=== PATIENT | male | born 1945 | race Caucasian/White ===

== ENCOUNTER → 2017-08-03 | Outpatient (CLI) | payer OTHER ==
[~2017-08-03] MED LIST: ALEVE220 MG PO; ANAPROX; BACTRIM DS TAB1 EACH PO; CEFUROXIME500 MG PO; CHOLESTEROL MED; COQ-10100 MG PO; COZAAR 50 MG TA50 M2 PO; FISH OIL 1,001000 M2 PO; FLAGYL500 MG PO; GINKGO60 MG PO; HEART MED; KEFLEX500 MG PO; MEDROLDOSEPACK PO; MINOCIN100 MG PO; NAPROSYN500 MG PO; SENTRY MULTIVI1 EACH PO; ZOCOR20 MG PO
== END ==
LOC: M.ULTRA 14:19
DX: N28.1 Cyst of kidney, acquired (principal); N28.9 Disorder of kidney and ureter, unspecified; I10 Essential (primary) hypertension; E78.5 Hyperlipidemia, unspecified; I73.9 Peripheral vascular disease, unspecified; R60.0 Localized edema

== ENCOUNTER → 2017-12-27 | Outpatient (CLI) | payer OTHER ==
--- NOTE | 2018-01-02 19:14 | SLEEP ---
[address] [address] SLEEP STUDY REPORT Name: JAMES LAU Room: [facility]#: [id number] Admission: 12/27/17 Attend Phys: Mick Quintana Discharge: Date of : 45 Report #: [id number] THIS REPORT FOR: //name// CC: Rosalie Liu This study has been reviewed in its entirety by a board certified sleep specialist DATE OF SERVICE: 12/27/2017 ATTENDING PHYSICIAN: Dr. Rosalie Liu. The patient is 72 years old who weighs 235 pounds and is 70 inches tall with a BMI of 33.7. The patient has a history of sleep apnea. Old records also suggest that the patient also has central sleep apnea. The patient was referred back for a split night study. During the night of study, the patient spent 452 minutes in bed and slept for 389 minutes with an excellent sleep efficiency of 86%. Sleep latency was 0.9 minutes with a REM latency of 43.9 minutes, which was short. Overall, sleep architecture showed normal stage 1 and stage II sleep, increased slow wave, which was 25% of the total sleep time and normal REM sleep, which was 26% of total sleep time. During the initial diagnostic portion of the study, the patient spent 151 minutes and slept for 141 minutes. During that time, the patient had 3 obstructive apneas, no mixed or central apneas. There were 29 hypopneas. The patient's apnea-hypopnea index was 13.6 per hour with a REM index of 51.7 per hour and a supine index of 13.6 per hour. EKG monitoring revealed average heart rate of 64 beats per minute with a maximum of 82 beats per minute. No sustained arrhythmias were observed. There was normal sinus rhythm. PLMS were seen at an index of 68 per hour and 7 per hour caused EEG arousals. Nocturnal oximetry study revealed an average oxygen saturation of 91% with a lowest of 56%. 19 minutes were spent at oxygen saturation less than 88%. The patient was started on BiPAP at a pressure of 8/4 after meeting the split night criteria. At a final pressure of 15/9, the patient slept for 60.4 minutes. The patient had REM sleep as well as supine sleep. The patient's AHI was reduced to 1 per hour and oxygen saturation remained above 89%. IMPRESSION: 1. Mild sleep apnea-hypopnea syndrome with worsening [place] [address] SLEEP STUDY REPORT Name: JAMES LAU Room: [facility]#: [id number] Admission: 12/27/17 Attend Phys: Mick Quintana Discharge: Date of : 45 Report #: [id number] AHI of 13.6 per hour with a REM AHI of 51.7 per hour. 2. Nocturnal hypoxia secondary to obstructive sleep apnea, but resolved with CPAP. 3. Severe PLMS at an index of 68 per hour and 7 per hour caused EEG arousals. RECOMMENDATIONS: 1. BiPAP at 15/, completely eliminated the patient's sleep apnea and should be used on a nightly basis. 2. Follow up in 4-6 weeks to assess compliance with BiPAP and to document clinical improvement. 3. Weight loss is advised. 4. Avoid CHIEF VENDOR QUALITY depressants. 5. Cautioned regarding driving until symptoms of sleep apnea resolve with the use of BiPAP. 6. The patient should also be further evaluated for symptoms of restless legs during the day. <ELECTRONICALLY SIGNED> By: David Timmons MD 01/02/18 1914 1740 [id number] Timmons MD /nt
== END ==
LOC: M.SLEEPLAB 20:09
DX: G47.30 Sleep apnea, unspecified (principal)

== ENCOUNTER 2018-08-21 12:47 | Inpatient (IN) | payer OTHER ==
[2018-08-10 09:34] LABS: ABSOLUTE EOSINOPHILS 0.1 thou/uL (0.0-0.7); ABSOLUTE LYMPHOCYTES 1.3 thou/uL (0.8-5.3); ABSOLUTE MONOCYTES 0.5 thou/uL (0.0-1.2); ABSOLUTE NEUTROPHILS 2.8 thou/uL (1.6-8.1); BASOPHILS 0.4 %; EOSINOPHILS 2.7 %; HEMATOCRIT 39.5 % (42.0-52.0); HEMOGLOBIN 13.1 gm/dL (14.0-18.0); LYMPHOCYTES 27.5 %; MCH 33.5 pg (26.0-34.0); MCHC 33.2 g/dL (28.0-37.0); MCV 100.9 fL (80.0-100.0); MONOCYTES 10.7 %; NUCLEATED RBCS 0 /100WBC; PLATELET COUNT* 163 thou/uL (150-400); POLYS 58.7 %; RBC 3.91 mil/uL (4.50-6.00); RDW-CV 13.6 % (10.5-14.5); WBC 4.8 thou/uL (4.0-11.0)
[2018-08-10 09:39] LABS: APTT 27.1 Seconds (25.0-31.3)
[2018-08-10 09:45] LABS: ALBUMIN 3.8 g/dL (3.4-5.0); CALCIUM 8.7 mg/dL (8.5-10.1); CREATININE 1.3 mg/dL (0.6-1.3); POTASSIUM 4.3 mmol/L (3.5-5.1); TOTAL BILIRUBIN 0.5 mg/dL (<0.1-1.0); TOTAL PROTEIN 6.7 g/dL (6.4-8.2)
[2018-08-10 10:41] LABS: ESR (SEDRATE) 7 mm/hr (0-20)
[2018-08-10 23:06] LABS: GLYCOHEMOGLOBIN (HGB A1C) 5.6 % (4.8-5.6)
--- NOTE | 2018-08-11 11:39 | EKG ---
[place] [address] ELECTROCARDIOGRAM REPORT Name: JAMES LAU Room: [facility]#: [id number] Admission: Attend Phys: Xavier Harris DO Discharge: Date of : 45 Report #: [id number] THIS REPORT FOR: //name// [facility] Test Date: 2018-08-10 Test Time: 09:31:47 Pat Name: JAMES LAU Department: Room: Gender: M Tower Operator: : 1945 Requested By: Xavier Harris Order Number: [id number] Reading MD: Wilfredo Gallegos Measurements Intervals [place] Rate: 66 P: 58 AR: 172 QRS: 10 QRSD: 72 T: 30 QT: 384 QTc: 403 Interpretive Statements Sinus rhythm Atrial premature complex Abnormal R-wave progression, early transition Compared to ECG 01/09/2016 11:32:42 Atrial premature complex(es) now present Electronically Signed On 08-11-2018 11:39:19 CDT by Wilfredo Gallegos [email or web address] <ELECTRONICALLY SIGNED> By: Wilfredo Gallegos MD, [facility] 08/11/18 1139 0931 0 Wilfredo Gallegos MD, FACC /EPI
[~2018-08-21] VITALS: Ht 175.3 cm; Wt 100.7 kg
[2018-08-21 14:38] VITALS: BP 114/77
[2018-08-21 17:30] VITALS: BP 128/72
[2018-08-21 20:00] VITALS: BP 121/68
[2018-08-22] VITALS: BP 116/62
[2018-08-22 04:21] LABS: HEMATOCRIT 36.4 % (42.0-52.0)
[2018-08-22 07:20] VITALS: BP 111/62
[2018-08-22] MEDS ORDERED: ELIQUIS5 MG PO (08:18)
[2018-08-22] MEDS ORDERED: OXYCODONE HCL 55 MG PO (08:18)
[2018-08-22] MEDS ORDERED: CELEBREX 200 M200 M1 PO (08:18)
[2018-08-22] MEDS ORDERED: COLACE100 MG PO (08:18)
[2018-08-22 10:59] VITALS: BP 111/62
[2018-08-22 11:37] VITALS: BP 118/66
[2018-08-22 16:55] VITALS: BP 108/61
[2018-08-22 20:00] VITALS: BP 129/66
[2018-08-23] VITALS: BP 123/68
[2018-08-23 00:05] VITALS: BP 125/76
[2018-08-23 04:00] VITALS: BP 135/73
[2018-08-23 04:46] LABS: HEMATOCRIT 35.3 % (42.0-52.0); HEMOGLOBIN 11.9 gm/dL (14.0-18.0)
[2018-08-23 07:40] VITALS: BP 106/62
--- NOTE | 2018-08-23 11:57 | OP ---
[address] [address] OPERATIVE REPORT Name: JAMES LAU Room: [address] M.R.#: [id number] Admission: 08/21/18 Attend Phys: Mick Thompson Discharge: Date of : 45 Report #: [id number] THIS REPORT FOR: //name// CC: Rosalie Lundberg DATE OF SERVICE: 08/21/2018 PREOPERATIVE DIAGNOSIS: Left knee advanced degenerative joint disease. POSTOPERATIVE DIAGNOSIS: Left knee advanced degenerative joint disease. PROCEDURE PERFORMED: Left total knee arthroplasty. SURGEON: Xavier Harris DO TRAVEL OT: Radha Johnson PA-C, gift shop assistant required for patient positioning, exposure, retraction as well as final implantation of the implants. SECOND ADULT LITERACY TEACHER: Gurpreet Mukherjee DO OPERATION PERFORMED: Left total knee arthroplasty. ANESTHESIA: General, local and regional nerve block. ESTIMATED BLOOD LOSS: 175 mL. SPECIMENS: None. COMPLICATIONS: None. IMPLANTS: Biomet Vanguard knee system. 1. 67.5 CR femur. 2. 79 tibia. 3. 10 mm poly. 4. 34 patella. INDICATIONS FOR PROCEDURE: The patient is a pleasant 73-year-old male with known DJD of the left knee who has failed conservative measures. He has x-rays demonstrating joint space narrowing, sclerosis, osteophytic changes and has attempted NSAIDs as tolerated, intraarticular injections as tolerated, activity modifications, home exercise. His symptoms continue to affect his ADLs and he is becoming more sedentary. Risks, benefits, complications and alternatives, indication of surgery discussed with the patient, include but not limited to risk of infection, need for repeat surgery, risks of nerves and vessels, DVT, [address] [address] OPERATIVE REPORT Name: JAMES LAU Room: [address] ..#: [id number] Admission: 08/21/18 Attend Phys: Mick Thompson Discharge: Date of : 45 Report #: [id number] pulmonary embolism, continued pain and swelling as well as other imponderables and risks associated with anesthesia up to and including . He voiced understanding and wished to proceed. DESCRIPTION OF PROCEDURE: The patient was seen in the preoperative holding area, correct operative site was marked, informed and written consent was obtained. He was transferred to the Operative Suite and placed supine on the OR table, given general anesthesia by the Anesthesia team. The left lower extremity was then prepped and draped in normal sterile fashion after a well-padded tourniquet was placed. A timeout was performed and all in attendance were in agreement as to correct operative site and procedure to be performed. A 10-blade scalpel was used to make an anterior longitudinal incision along the left knee and this was taken down to the level of the capsule. A new 10-blade scalpel was used to perform a medial parapatellar arthrotomy. Once we had excellent adequate visualization, the patella was everted and the knee was flexed. We then used our intramedullary drill for the femur to gain access to the canal for intramedullary guide. This was placed and femoral cutting block was held in place with pins. We then resected 11 mm off the distal femur. Excess bone osteophytes were removed, the block was removed, then we turned our attention to the tibial cuts. External tibial guide was placed and held in place with pins, taking 10 mm from the high lateral side. Once we had performed a proximal tibial resection, excess osteophytes were removed. The knee was taken through extension and a 10 mm spacer block was placed. Knee was found to have excellent coronal balancing at this point. Knee was then once again flexed. ____ guide for the femur was held in place and the drill holes were made. Knee was measured and found to be a size 67.5 and a 67.5 4-in-1 cutting block was malleted into place and held with bone nails. The remaining 4 cuts to the distal femur were made and excess bone osteophytes were removed. Cutting block was removed and our tibial tray trial size was held in place with bone nails. The femoral trial was then malleted into place, lateralized as much as possible and found to have an excellent fit. The 10 mm poly was then inserted, knee was taken through range of motion and found to be stable in both sagittal and coronal planes. He had significant eburnated bone and osteophytes of the patella. These were removed to the proper size in order for a 56 mm patellar reamer. Patella was reamed to the appropriate depth and then measured and found to be a 34 oval. Our peg drill holes were made using the 34 mm guide. A patellar trial was then inserted. Knee was taken through range of motion and found to have good tracking. The knee was once again flexed. The drill holes for distal femur were made. Femoral trial was removed and then the proximal tibia was prepared using the intramedullary reamer followed by the cruciate osteotome. The tibial trial was removed and a drill was used to the eburnated the bone in the medial compartment to better allow for cement fixation. The [address] [address] OPERATIVE REPORT Name: JAMES LAU Room: [address] IN [facility].#: [id number] Admission: 08/21/18 Attend Phys: Mick Thompson Discharge: Date of : 45 Report #: [id number] posterior capsule and periosteum was then injected with the local anesthetic. Cement was mixed on the back table under vacuum suction and then applied to the cleaned cut surfaces of the knee, which were cleaned with a pulsatile lavage. Implant had cement placed and our final implants were malleted in place with excess cement removed using a [place]. The 10 mm trial poly was once again inserted in the knee, taken through range of motion and found to have excellent tracking in both coronal and sagittal planes as well as patellar tracking. Final 10 mm poly was placed and held with the tray bar. Cement was allowed to harden and the tourniquet was deflated. Hemostasis was maintained with tamponade and electrocautery. The knee was once again thoroughly irrigated and then vancomycin powder 1 gram was sprinkled into the joint. At this point, the capsule was closed using #1 Vicryl in a [id number] fashion followed by running barbed Quill #1 suture. The skin was closed using 2-0 Monocryl in an inverted subcuticular fashion followed by running 3-0 Stratafix subcuticular, Exofin skin glue and then a sterile Mepilex dressing was placed. All needle and scrubbed counts were correct at the end of the case x 2. I attest Dr. Harris was present through all clinical decision making aspects of the case. POSTOPERATIVE PLAN: The patient will be transferred to the PACU and monitored until awake and stable and discharged to Med/Surg floor. We will provide p.o. analgesia, mechanical and chemical DVT prophylaxis including 2.5 mg p.o. b.i.d. and receive Physical Therapy prior to discharge. <ELECTRONICALLY SIGNED> By: Eddi Guaman DO 08/23/18 1157 1616 [id number] Harris DO /nt
[2018-08-23 16:27] VITALS: BP 97/59
[2018-08-23 20:00] VITALS: BP 101/68
[2018-08-24 04:10] VITALS: BP 119/68
[2018-08-24 08:30] VITALS: BP 110/67
[2018-08-24 21:00] VITALS: BP 115/62
[2018-08-25 03:58] VITALS: BP 123/66
[2018-08-25 08:00] VITALS: BP 110/71
[2018-08-25] MEDS ORDERED: LIDOCAINE PAIN1 EACH TOP (08:05)
[2018-08-25] MEDS ORDERED: APAP650 PO (15:49)
[2018-08-25] MEDS ORDERED: ASPIRIN325 PO (15:51)
[2018-08-25] MEDS ORDERED: LIDOCAINE PAIN1 EACH TRANSDERM (15:53)
[2018-08-25 15:54] VITALS: BP 111/62
[2018-08-25 16:12] VITALS: BP 111/62
== END 2018-08-25 16:08 | disposition home or self-care (01) | DRG 469 ==
LOC: M.SUR 12:47 → M.ORTHSURG 15:57 → M.TBA 15:57 → M.ORTHSURG 17:05
PROVIDERS: Orthopaedic Surgery; ADMIT Internal Medicine
PROC: 0SRD0J9 Replacement of Left Knee Joint with Synthetic Substitute, Cemented, Open Approach (ICD-10-PCS; principal; 2018-08-21)
DX: M17.12 Unilateral primary osteoarthritis, left knee (principal); G92 Toxic encephalopathy; F03.90 Unspecified dementia, unspecified severity, without behavioral disturbance, psychotic disturbance, mood disturbance, and anxiety; I10 Essential (primary) hypertension; Z85.46 Personal history of malignant neoplasm of prostate; Z92.3 Personal history of irradiation; Z79.899 Other long term (current) drug therapy

== ENCOUNTER 2018-09-15 16:16 | Emergency (ER) | payer OTHER ==
[~2018-09-15] VITALS: Ht 175.3 cm; Wt 103.0 kg
[~2018-09-15 16:16] MED LIST changes: +APAP650 PO; +ASPIRIN325 PO; +CELEBREX 200 M200 M1 PO; +COLACE100 MG PO; +ELIQUIS5 MG PO; +LIDOCAINE PAIN1 EACH TOP; +LIDOCAINE PAIN1 EACH TRANSDERM; +OXYCODONE HCL 55 MG PO
[2018-09-15 16:47] LABS: ABSOLUTE EOSINOPHILS 0.1 thou/uL (0.0-0.7); ABSOLUTE LYMPHOCYTES 1.5 thou/uL (0.8-5.3); ABSOLUTE MONOCYTES 0.5 thou/uL (0.0-1.2); ABSOLUTE NEUTROPHILS 3.6 thou/uL (1.6-8.1); BASOPHILS 0.4 %; EOSINOPHILS 1.8 %; HEMATOCRIT 39.1 % (42.0-52.0); HEMOGLOBIN 12.7 gm/dL (14.0-18.0); LYMPHOCYTES 26.1 %; MCH 33.5 pg (26.0-34.0); MCHC 32.5 g/dL (28.0-37.0); MCV 102.9 fL (80.0-100.0); MONOCYTES 8.2 %; MPV 9.6 fl. (7.2-11.1); NUCLEATED RBCS 0 /100WBC; PLATELET COUNT* 202 thou/uL (150-400); POLYS 63.5 %; RDW-CV 14.1 % (10.5-14.5); WBC 5.7 thou/uL (4.0-11.0)
[2018-09-15 16:55] LABS: PROTIME 10.2 Seconds (9.20-11.50)
[2018-09-15 16:56] LABS: ANION GAP 9 mmol/L (7-16); BUN 21 mg/dL (7-18); CALCIUM 9.1 mg/dL (8.5-10.1); CHLORIDE 107 mmol/L (98-107); CO2 27 mmol/L (21-32); CREATININE 1.4 mg/dL (0.6-1.3); GLUCOSE 105 mg/dL (70-99); POTASSIUM 3.9 mmol/L (3.5-5.1); SODIUM 143 mmol/L (136-145)
[2018-09-15 17:06] LABS: ALBUMIN 3.8 g/dL (3.4-5.0); ALKALINE PHOSPHATASE 84 U/L (46-116); LIPASE 114 U/L (73-393); NT-PRO BRAIN NAT PEPTIDE 32 pg/mL (<300); SGOT 26 U/L (15-37); SGPT 41 U/L (30-65); TOTAL BILIRUBIN 0.6 mg/dL (<0.1-1.0); TOTAL PROTEIN 7.1 g/dL (6.4-8.2); TROPONIN-I LEVEL <0.06 ng/mL (<0.06)
[2018-09-15 17:46] LABS: URINE BILIRUBIN NEGATIVE (Negative); URINE BLOOD NEGATIVE (Negative); URINE CLARITY CLEAR; URINE COLOR YELLOW; URINE GLUCOSE-RANDOM NEGATIVE (Negative); URINE KETONES NEGATIVE (Negative); URINE LEUKOCYTES-REFLEX NEGATIVE (Negative); URINE NITRITE-REFLEX NEGATIVE (Negative); URINE PROTEIN NEGATIVE (Negative)
[2018-09-15 17:53] VITALS: BP 120/70
--- NOTE | 2018-09-19 12:48 | EKG ---
[place] [address] ELECTROCARDIOGRAM REPORT Name: JAMES LAU Room: [facility]#: [id number] Admission: 09/15/18 Attend Phys: Discharge: 09/15/18 Date of : 45 Report #: [id number] THIS REPORT FOR: //name// [facility] ED Test Date: 2018-09-15 Test Time: 17:06:04 Pat Name: JAMES LAU Department: Room: Gender: M Basic Sciences Professor: Lukas BALLARD : 1945 Requested By: Buddy Argueta Order Number: [id number] MD: Ramón Hale Measurements Intervals [place] Rate: 70 P: 61 MA: 175 QRS: 18 QRSD: 73 T: 42 QT: 374 QTc: 404 Interpretive Statements Sinus rhythm Low voltage, precordial leads Abnormal R-wave progression, early transition Baseline wander in lead(s) I,III,aVL Compared to ECG 08/10/2018 09:31:47 Low QRS voltage now present Atrial premature complex(es) no longer present Electronically Signed On 09-19-2018 12:47:56 CDT by Ramón Hale [email or web address] <ELECTRONICALLY SIGNED> By: Ramón Hale MD, FAC 09/19/18 1247 1706 1706 Ramón Hale MD, FAC /EPI
== END 2018-09-15 17:54 | disposition home or self-care (01) ==
LOC: M.ERS 16:16
PROVIDERS: Family Medicine
DX: R53.1 Weakness (principal); R41.0 Disorientation, unspecified; I10 Essential (primary) hypertension; Z85.46 Personal history of malignant neoplasm of prostate; Z88.5 Allergy status to narcotic agent

== ENCOUNTER → 2019-05-08 | Outpatient (CLI) | payer OTHER | LOC: M.MRI 12:54 | DX: R90.82 White matter disease, unspecified (principal); G47.33 Obstructive sleep apnea (adult) (pediatric) ==

== ENCOUNTER 2019-09-14 10:49 | Emergency (ER) | payer OTHER ==
[~2019-09-14] VITALS: Ht 177.8 cm; Wt 104.3 kg
[2019-09-14 12:42] VITALS: BP 156/76
== END 2019-09-14 12:45 | disposition home or self-care (01) ==
LOC: M.ERS 10:49
DX: R09.89 Other specified symptoms and signs involving the circulatory and respiratory systems (principal); I10 Essential (primary) hypertension; Z88.5 Allergy status to narcotic agent

== ENCOUNTER → 2020-09-19 | Outpatient (CLI) | payer OTHER ==
[2020-09-19 13:02] LABS: ABSOLUTE EOSINOPHILS 0.1 thou/uL (0.0-0.7); ABSOLUTE LYMPHOCYTES 1.5 thou/uL (0.8-5.3); ABSOLUTE MONOCYTES 0.5 thou/uL (0.0-1.2); ABSOLUTE NEUTROPHILS 4.3 thou/uL (1.6-8.1); BASOPHILS 0.2 %; HEMATOCRIT 38.4 % (42.0-52.0); HEMOGLOBIN 12.7 gm/dL (14.0-18.0); LYMPHOCYTES 23.7 %; MONOCYTES 8.2 %; MPV 9.3 fl. (7.2-11.1); NUCLEATED RBCS 0 /100WBC; PLATELET COUNT* 168 thou/uL (150-400); POLYS 66.9 %; RBC 3.96 mil/uL (4.50-6.00); RDW-CV 14.7 % (10.5-14.5); WBC 6.4 thou/uL (4.0-11.0)
[2020-09-19 13:20] LABS: ALBUMIN 3.8 g/dL (3.4-5.0); CALCIUM 9.1 mg/dL (8.5-10.1); CREATININE 1.1 mg/dL (0.6-1.3); POTASSIUM 4.5 mmol/L (3.5-5.1); TOTAL BILIRUBIN 0.6 mg/dL (<0.1-1.0); TOTAL PROTEIN 7.1 g/dL (6.4-8.2)
[2020-09-19 14:04] LABS: ESR (SEDRATE) 5 mm/hr (0-20)
== END ==
LOC: M.LAB 09:43
PROVIDERS: ATTEND Nurse Practitioner Family
DX: I25.10 Atherosclerotic heart disease of native coronary artery without angina pectoris (principal); I70.0 Atherosclerosis of aorta; E04.1 Nontoxic single thyroid nodule; N63.20 Unspecified lump in the left breast, unspecified quadrant; R59.1 Generalized enlarged lymph nodes